=== PATIENT | male | born 1990 | race African-American/Black ===

== ENCOUNTER 2022-02-04 20:23 | Emergency (ER) | payer OTHER, SELFPAY ==
[~2022-02-04 20:23] MED LIST: Iopamidol 300 61% 100 ML VIAL FS ONE
[2022-02-04] MEDS ORDERED: Morphine 4 MG/ML VIAL ONE (20:50)
[2022-02-04 21:26] LABS: ALT (SGPT) 15 U/L (8-55); AST (SGOT) 13 U/L (5-34); Alkaline Phosphatase 71 U/L (40-110); Anion Gap 11 mmol/L (10-20); BUN (Urea Nitrogen) 7 mg/dL (8.9-20.6); Bilirubin, Total 0.4 mg/dL (0.2-1.2); Calc. Creatinine Clearance 0 mL/min (70-130); Calcium 8.7 mg/dL (7.8-10.44); Carbon Dioxide 24 mmol/L (22-29); Chloride 104 mmol/L (98-107); Estimated GFR 101; Glucose 101 mg/dL (70-105); Potassium 3.5 mmol/L (3.5-5.1); Sodium 135 mmol/L (136-145)
== END 2022-02-04 22:07 | disposition home or self-care (01) ==
LOC: CSHERS 20:23
DX: S09.90XA Unspecified injury of head, initial encounter (principal); S16.1XXA Strain of muscle, fascia and tendon at neck level, initial encounter; S39.012A Strain of muscle, fascia and tendon of lower back, initial encounter; F17.290 Nicotine dependence, other tobacco product, uncomplicated; V89.2XXA Person injured in unspecified motor-vehicle accident, traffic, initial encounter
CPT/HCPCS: 36415; 70450; 70486; 71260; 72125; 74177; 80053; 96374; G0390; J2270